=== PATIENT | female | born 1990 | race Caucasian/White ===

== ENCOUNTER 2024-03-12 06:01 | Emergency (ER) | payer SELFPAY ==
[~2024-03-12] VITALS: Ht 165.1 cm; Wt 75.0 kg
[2024-03-12 06:07] VITALS: O2SAT 98
[2024-03-12 08:54] LABS: CARBON DIOXIDE 24 mEq/L (21-32); CHLORIDE 108 mEq/L (98-107); POTASSIUM 3.9 mEq/L (3.5-5.1); SODIUM 139 mEq/L (136-145)
[2024-03-12 08:55] LABS: CALCIUM 9.6 mg/dL (8.7-10.4)
[2024-03-12 09:00] LABS: CREATININE 0.5 mg/dL (0.6-1.0); GLUCOSE 96 mg/dL (70-105); UREA NITROGEN BLOOD 8 mg/dL (9-23)
[2024-03-12 09:02] LABS: ALANINE AMINOTRANSFERASE 16 IU/L (10-49); ALBUMIN 4.7 g/dL (3.2-4.8); ASPARTATE AMINOTRANSFERASE 17 IU/L (<34); BILIRUBIN TOTAL 0.4 mg/dL (0.1-1.0); PROTEIN TOTAL 7.2 g/dL (6.0-8.3)
[2024-03-12 09:08] LABS: HCG SCREEN NEGATIVE
[2024-03-12 09:09] LABS: BASOPHILS % 0.4 % (0.0-2.0); EOSINOPHILS % 1.3 % (0.0-5.0); HEMATOCRIT. 38.9 % (36.0-48.0); HEMOGLOBIN. 13.3 g/dL (12.0-16.0); LYMPHOCYTES % 28.1 % (20.0-50.0); MEAN CORPUSCULAR HEMOGLOBIN 29.3 pg (28.0-32.0); MEAN CORPUSCULAR HGB CONC 34.2 g/dL (31.0-37.0); MEAN CORPUSCULAR VOLUME 85.7 fL (81.0-99.0); MEAN PLATELET VOLUME 9.7 fl (7.4-10.4); MONOCYTES % 5.1 % (2.0-8.0); NEUTROPHILS % 65.1 % (40.0-76.0); PLATELET 300 x1000/uL (130-400); RED BLOOD CELL COUNT 4.54 mill/uL (4.2-5.4); RED CELL DISTRIBUTION WIDTH 12.9 % (11.6-14.6); WHITE BLOOD COUNT 8.1 x1000/uL (4.5-11.0)
[2024-03-12] MEDS: IBUPROFEN 600MG TABLET PO ONE (10:02)
[2024-03-12] MEDS: METHOCARBAMOL 500MG TABLET PO ONE (10:02)
[2024-03-12] MEDS ORDERED: IBUP-2029 MT (10:03)
[2024-03-12] MEDS ORDERED: METH-653 MT (10:04)
[2024-03-12 10:56] VITALS: BP 128/78; PULSE 78; RESP 18; TEMP 98.2
== END 2024-03-12 10:54 | disposition home or self-care (01) ==
LOC: ER 06:01
DX: S20.212A Contusion of left front wall of thorax, initial encounter (principal); V98.8XXA Other specified transport accidents, initial encounter; Y93.89 Activity, other specified; Y92.89 Other specified places as the place of occurrence of the external cause; Y99.8 Other external cause status
CPT/HCPCS: 36415; 71101; 74176; 80053; 81025; 84703; 85025; 99284